=== PATIENT | male | born 1975 | race Caucasian/White ===

== ENCOUNTER 2023-07-19 13:05 | Emergency (ER) | payer OTHER, SELFPAY ==
[2023-07-19 13:05] VITALS: BMI 28.9
[2023-07-19 13:10] VITALS: BP 143/98
[2023-07-19 13:58] VITALS: BP 122/92
[2023-07-19 14:00] VITALS: BP 133/88
--- NOTE | 2023-07-19 14:41 | ED.GENMED ---
History of Present Illness
General
Chief Complaint: Heart Rate Problem
Source: patient
Exam Limitations: none
Time Seen by Provider: 07/19/23 14:31
Nursing documentation reviewed up to this point in time: agreed with
Travel History
Have you had any contact with someone who has COVID-19?: No
Do you have any symptoms of coronavirus? Fever > 100 degrees, chills, cough, shortness of breath, sore throat, loss of taste or smell, muscle aches, or headache?: No
History of Present Illness
History of Present Illness:
This is a 47-year-old male with a past medical history of GERD, type one diabetes, hypertension, hyperlipidemia, presenting to the emergency department today with concerns of indigestion. Patient states has a hx of GERd and takes omeprazole 20 mg
daily. He states that he currently has epigastric pain that radiates up the chest, typical of his gerd symptoms but this time it has been persistent for 3 days on and off throughout the day and does not relieve with addition of TUMs, so pt went to
urgent care. Patient states he ate a lot this weekend at family parties and feel like this set off his symptoms. Urgent care sent him to the emergency department in order to get a troponin and to get tachycardia evaluated. Patient denies nausea,
vomiting, urinary symptoms, back pain, shortness of breath, fevers or chills, palpitations. Patient has a family history of early CAD in his dad and his brother and so because of this, he follows with Dr. Antunez but has had negative stress
testing/echos thus far.
Review of Systems
Review of Systems
All Other Systems: ROS reviewed and negative except as documented in HPI and ROS
Phy Exam
Physical Exam
Physical Exam:
General: Patient is well appearing and no acute distress
Skin: Warm and dry, no rashes or lesions
Head:Normocephalic, atraumatic
Eyes: EOMs intact, sclera non-icteric, PERRLA.
Cardiac: RRR, no murmurs/rubs/gallops. No tenderness to palpation of external chest wall.
Peripheral Vascular: No lower extremity swelling or edema.
Pulm: Normal respiratory effort. No tachypnea. No wheezing.
Abdomen: No epigastric tenderness to palpation. No palpable masses.
Neuro: CNN II-XII intact, no focal neurologic deficits.
Psychiatric: Appropriate mood and affect
Course
Orders/Labs/Results
Orders:
Orders
07/19/23 13:14
Electrocardiogram (*1) Urgent
Reason for Study: Other
Other Reason for Exam: epigastric pressure.
07/19/23 13:15
EKG- Treatment ONCE
07/19/23 15:00
Complete Blood Count/With Diff Urgent
Comprehensive Metabolic Panel Urgent
Lipase Urgent
Troponin I Urgent
07/19/23 15:16
Bedside Glucose- Treatment ONCE
07/19/23 15:18
0.9% Sodium Chloride 1000 ml [Nss] 1,000 ml IV BOLUS
Pantoprazole [Protonix IV] 40 mg IV NOW STA
07/19/23 15:19
Mag Hydrox/Al Hydrox/Simeth [Maalox] 30 ml Phenobarb/Hyoscy/Atropine/Scop [] 10 ml PO NOW
07/19/23 15:27
Mag Hydrox/Al Hydrox/Simeth [Maalox] 30 ml .ROUTE .STK-MED ONE
Phenobarb/Hyoscy/Atropine/Scop [] 10 ml .ROUTE .STK-MED ONE
07/19/23 16:09
US Abdomen Complete/Upper Urgent
Reason For Exam: epigastric pain, elevated bili, hx of cholecystect
Abnormal Lab Results
07/19/23
15:00
Abs Immat Gran (auto) 0.1 H 10^3/uL
(0-0.05)
Absolute Monos (auto) 0.8 H 10^3/uL
(0.1-0.6)
Immature Gran % 1.1 H %
(0-0.5)
Lymphocytes % 16.1 L %
(20.5-51.1)
Sodium 131 L mmol/L
(135-145)
Carbon Dioxide 20 L mmol/L
(22-30)
Glucose 293 H mg/dl
(70-99)
Total Bilirubin 1.9 H mg/dl
(0.2-1.3)
07/19/23 15:00
07/19/23 15:00
Vital Signs
Initial and Last Documented VS:
Initial Vital Signs
Temp Pulse Resp BP Pulse Ox
98.4 F 128 18 143/98 97
07/19/23 13:10 07/19/23 13:10 07/19/23 13:10 07/19/23 13:10 07/19/23 13:10
Last Documented Vital Signs
Temp Pulse Resp BP Pulse Ox
98.8 F 94 22 141/93 93
07/19/23 18:45 07/19/23 18:37 07/19/23 18:37 07/19/23 18:39 07/19/23 14:30
MDM/Problems Addressed
Differential Diagnosis Includes:
ddx include GERD, gastritis, duodenitis, ACS, costochondritis, musculoskeletal sprain/strain
MDM/Problems Addressed:
epigastric pain, chest pain. labs sent off, EKG sinus tachycardia (rate 101)

please see patient management section
Chronic conditions affecting care:
HTN, HLP, diabetes, depression, GERD
*Pulse Oximetry
Patient hypoxic: no
*EKG
Interpreted by ED Provider?: Yes
EKG Intrepretation Date: 07/19/23
Interpretation: abnormal
Comparison EKG: no comparison EKG present
Heart Rate: 104
Rate: tachycardiac
Rhythm: sinus
Beltrami: normal axis
Interval: normal interval, normal QT interval and normal MS interval
QRS Pattern: normal QRS
Ischemia: non-specific ST changes
*Community Outreach Manager Interpretation
Rate: normal
Interpretation: normal
Heart Rate: 80
Rhythm: sinus
*Critical Care Note
Total Time (30-74mins, 75-104mins- exclusive of procedures): Not Applicable
Data Reviewed
Review of Other/Old Records Reveals: Records (no previous ER visits to review) and Discharge Summary (no discharge summaries to review)
Source: patient
Further Testing Considered But Not Given:
considered CT scan of the abdomen and pelvis however patient has no tenderness to palpation on exam, no fever, no concern for acute intra-abdominal pathology
Patient Management
Escalation/DeEscalation of care consider admission/obs:
This is a 47-year-old male with a past medical history of GERD, type one diabetes, hypertension, hyperlipidemia, presenting to the emergency department today with concerns of indigestion/epigastric pain. Patient states has a hx of GERd and takes
omeprazole 20 mg daily. Cardiac workup unremarkable, no indication for repeating trops considering multiple days of symptoms. Patient given fluids, IV ppi, green grabber which significantly improved patient symptoms. Lipase normal.
Considering elevation of total bili, RUQ ultrasound was done which was negative for biliary dilatation. Did advise repeat of labs as outpatient. Patient has follow up with primary coming up. He has followed up with GI in the past considering his
GERD he did have an EGD done, he can follow up as needed with GI. Advised to increase PPI dose to 40 once daily for 2 weeks should his sypmtoms persist. Asymptomatic upon discharge. Cardiac workup unremarkable, has established rn child aware of
return precautions
Update Note
Update Note:
4:00 pm--patient had a GI cocktail, does note improvement of his symptoms, however he does have an elevated total bilirubin, patient did have a history of a prior cholecystectomy and MRCP many years ago, will obtain ultrasound to look for any
commonn bile duct dilatation, patient in agreement plan noted negative troponin, no indication for trending trops
ED Attending Note
-
Portions of this chart may have been created with voice recognition software.� Occasional wrong word or��sound alike� substitutions may have occurred due to the inherent limitations of voice recognition software.
Discharge Plan
Departure
Patient Disposition: Home (Routine Discharge)
Date of Disposition: 07/19/23
Time of Disposition: 18:19
Patient with high blood pressure during this ER visit?: Yes
Condition: Good
Discharge Problem:
Epigastric pain
Instructions: Abdominal Pain, Adult ED, BLOOD PRESSURE
Prescriptions:
New
sucralfate [Carafate] 100 mg/mL suspension
1 g PO BID Qty: [phone]
Referrals:
Jd Lambert MD [Family Provider] -
Activity Restrictions/Additional Instructions:
We have also sent carafate to your pharmacy. You can take one gram (10 ml) twice daily.
Please increase Prilosec dosing to two tablets once daily for a total of 40 mg once daily. Please take this for a week. Please follow-up with your primary care provider to have your lab work repeated to reassess your bilirubin level.
Please call the attached number to schedule appointment with applications engineering manager.
Interventions
Interventions:
*Risk Screen - Suicide Last Done: 07/19/23 13:13
*General Assessment Last Done: 07/19/23 13:13
*Neglect/Abuse Screening Last Done: 07/19/23 13:13
ED- Fall Risk Assessment Last Done: 07/19/23 15:58
*ED COVID-19 Vaccine History Last Done: 07/19/23 18:46
*Nursing Disposition Last Done: 07/19/23 18:45
ED- Cardiac Assessment Last Done: 07/19/23 14:15
ED- Pulmonary Assessment Last Done: 07/19/23 14:15
Discharge Date and Time
Discharge Date/Time: 07/19/23 18:46
Print Language: GUINEAN
[2023-07-19 15:15] LABS: % Basophils 0.5 % (0-2); % Eosinophils 0.4 % (0-6); % Immature Granulocytes 1.1 % (0-0.5); % Lymphocytes 16.1 % (20.5-51.1); % Monocytes 9.3 % (1.7-9.3); % Neutrophils 72.6 % (42.2-75.2); Absolute Immature Granulocytes 0.1 10^3/uL (0-0.05); Absolute Lymphocytes 1.3 10^3/uL (1.2-3.4); Absolute Monocytes 0.8 10^3/uL (0.1-0.6); Absolute Neutrophils 5.8 10^3/uL (1.4-6.5); Hematocrit 44.8 % (39.0-52.0); Hemoglobin 15.9 g/dL (13.0-18.0); Mean Corp Hgb Conc. 35.5 g/dL (33.0-37.0); Mean Corpuscular Hgb 29.9 pg (27.0-31.0); Mean Corpuscular Volume 84.4 fL (80.0-94.0); Mean Platelet Volume 8.6 fL (7.4-10.4); Nucleated Red Blood Cells % 0 % (-); Platelet Count 205 10^3/uL (130-400); Red Blood Cell Count 5.31 10^6/uL (4.70-6.10); Red Cell Dist. Width 11.5 % (11.5-14.5)
[2023-07-19 15:27] LABS: ALT (SGPT) 41 U/L (0-50); AST (SGOT) 50 U/L (17-59); Albumin 4.5 g/dl (3.5-5.0); Alkaline Phosphatase 105 U/L (38-126); Blood Urea Nitrogen 18 mg/dl (9-20); Carbon Dioxide 20 mmol/L (22-30); Chloride 98 mmol/L (98-107); Estimated Creatinine Clearance 118 ml/min; Glucose 293 mg/dl (70-99); Sodium 131 mmol/L (135-145); Total Bilirubin 1.9 mg/dl (0.2-1.3); Total Protein 7.3 g/dl (6.3-8.2); eGFR > 60.00
[2023-07-19] MEDS: MAALOX 30 PO (15:34)
[2023-07-19] MEDS: PROTONIX IV 40 MG IV (15:35)
[2023-07-19 15:37] LABS: Troponin I < 0.012 ng/ml
[2023-07-19] MEDS: NSS 1000 IV (15:38)
[2023-07-19 16:02] LABS: Lipase 42 U/L (23-300)
[2023-07-19 18:39] VITALS: BP 141/93
== END 2023-07-19 18:46 | disposition home or self-care (01) ==
LOC: EMR 13:05
PROVIDERS: Physician Assistant; EMERGENCY PHYSICIAN Emergency Medicine; FAMILY PHYSICIAN Family Medicine
DX: R10.13 Epigastric pain (principal); R00.0 Tachycardia, unspecified; K21.9 Gastro-esophageal reflux disease without esophagitis; E10.9 Type 1 diabetes mellitus without complications; E78.5 Hyperlipidemia, unspecified; F32.A Depression, unspecified; I10 Essential (primary) hypertension; Z79.899 Other long term (current) drug therapy; Z88.8 Allergy status to other drugs, medicaments and biological substances; Z90.49 Acquired absence of other specified parts of digestive tract
CPT/HCPCS: 99284; 96374; 96361; 76700; 80053; 83690; 84484; 85025; 93005